=== PATIENT | female | born 1985 | race Asian ===

== ENCOUNTER 2022-07-19 11:03 | Emergency (ER) | payer MEDICAID ==
[~2022-07-19] VITALS: Ht 162.6 cm; Wt 63.5 kg
[2022-07-19 11:26] VITALS: BP 124/80
--- NOTE | 2022-07-19 11:31 | NUR ---
SWABBED FOR COVID AND SENT TO LAB
[2022-07-19] MEDS ORDERED: IBUP-2218 PO (11:43)
[2022-07-19] MEDS ORDERED: BENZ150C2 PO (11:43)
--- NOTE | 2022-07-19 12:01 | NUR ---
Patient discharged with v/s stable. Written and verbal after care instructions given and explained. Patient alert, oriented and verbalized understanding of instructions. Ambulatory with steady gait. All questions addressed prior to discharge. ID band removed. Patient advised to follow up with PMD. Rx of TESSALON PEARLS, TYLENOL given. Patient educated on indication of medication including possible reaction and side effects. Opportunity to ask questions provided and answered.
== END 2022-07-19 12:01 | disposition home or self-care (01) ==
LOC: MED 11:03
DX: J06.9 Acute upper respiratory infection, unspecified (principal); Z20.822 Contact with and (suspected) exposure to COVID-19
CPT/HCPCS: 99283